=== PATIENT | male | born 1955 | race Caucasian/White ===

== ENCOUNTER 2016-11-27 19:26 | Emergency (ER) | payer OTHER ==
[~2016-11-27 19:26] MED LIST: AMARYL1 MG PO; ASPIRIN CHEWABL81 MG PO; BRILINTA90 MG PO; CRESTOR5 M1 PO; DUEXIS 800-26.1 EACH PO; JANUMET 50-1,01 EACH PO; NITROQUIK SL0.4 MG SL; PROTONIX 40MG T40 MG PO; SYNTHROID75 MCG PO; TOPROL XL 25MG25 MG PO; ZESTRIL5 MG PO
[2016-11-27 20:53] LABS: BILIRUBIN NEGATIVE (NEGATIVE); BLOOD 3+ Ery/uL (NEGATIVE); CLARITY CLEAR (CLEAR); COLOR YELLOW (YELLOW); GLUCOSE (U) 1+ mg/dL (NORMAL); KETONE (U) NEGATIVE (NEGATIVE); LEUKOCYTES NEGATIVE Leu/uL (NEGATIVE); NITRITE NEGATIVE (NEGATIVE); PROTEIN 1+ mg/dL (NEGATIVE); SPECIFIC GRAVITY 1.015 (1.001-1.030); UROBILINOGEN 0.2 mg/dL (0.2-1.0)
[2016-11-27 20:58] LABS: URINARY RBC 20-50
[2016-11-27 21:07] LABS: CREATININE 0.9 mg/dL (0.7-1.2); POTASSIUM 4.3 mmol/L (3.5-5.1)
== END 2016-11-27 22:55 | disposition home or self-care (01) ==
LOC: FER 19:26
PROVIDERS: Emergency Medicine
DX: R33.0 Drug induced retention of urine (principal); T50.905A Adverse effect of unspecified drugs, medicaments and biological substances, initial encounter; E11.9 Type 2 diabetes mellitus without complications; M54.9 Dorsalgia, unspecified; G89.29 Other chronic pain; Z79.84 Long term (current) use of oral hypoglycemic drugs; Z79.82 Long term (current) use of aspirin; Z79.1 Long term (current) use of non-steroidal anti-inflammatories (NSAID); Z79.899 Other long term (current) drug therapy; Z98.890 Other specified postprocedural states
CPT/HCPCS: 36415; 74022; 80048; 81001